=== PATIENT | male | born 1980 | race Two or more races ===

== ENCOUNTER 2016-09-06 09:47 | Emergency (ER) | payer OTHER ==
[~2016-09-06] VITALS: Ht 185.4 cm; Wt 68.0 kg
[2016-09-06] MEDS: ONDANSETRON 4 MG TAB.RAPDIS SL ONE (10:27)
[2016-09-06 10:29] VITALS: BP 124/68
== END 2016-09-06 10:30 ==
LOC: ER 09:50
DX: F11.23 Opioid dependence with withdrawal (principal); E11.9 Type 2 diabetes mellitus without complications; B19.20 Unspecified viral hepatitis C without hepatic coma
CPT/HCPCS: 99283; A4606; Z7610; Z7502